=== PATIENT | female | born 1935 | race Caucasian/White ===

== ENCOUNTER → 2017-04-01 | Outpatient (CLI) | payer OTHER, MEDICARE | LOC: CIMAGING 10:16 | DX: Z12.31 Encounter for screening mammogram for malignant neoplasm of breast (principal) | CPT/HCPCS: G0202 ==

== ENCOUNTER → 2018-04-22 | Outpatient (CLI) | payer OTHER, MEDICARE | LOC: CIMAGING 08:13 | PROVIDERS: ATTEND Family Medicine | DX: Z12.31 Encounter for screening mammogram for malignant neoplasm of breast (principal) ==

== ENCOUNTER → 2018-10-10 | Outpatient (CLI) | payer OTHER, MEDICARE | LOC: CIMAGING 13:25 ==